=== PATIENT | female | born 1990 ===

== ENCOUNTER 2025-01-29 09:14 | Emergency (ER) | payer OTHER, SELFPAY ==
[2025-01-29 09:46] VITALS: BP 143/84; PULSE 64; RESP 16; TEMP 36.6; O2SAT 99; BMI 32.2
[2025-01-29] MEDS: ONDANSETRON 4 MG ODT PO (10:03)
--- NOTE | 2025-01-29 10:05 | DI.US.S_ITS ---
PROCEDURE: US ABDOMEN LIMITED INDICATIONS: ruq TECHNIQUE: Real-time focused scanning was performed of the abdomen, with image documentation. COMPARISON: None. FINDINGS: The liver demonstrates enlarged size. The liver demonstrates generalized moderately increased echogenicity. This decreases ultrasound sensitivity for detection of hepatic masses. Numerous small mobile gallstones are seen. The gallbladder wall is not thickened, measuring 3 mm or less. No specific pericholecystic fluid is seen. The sonographic Robledo sign is negative. There is no biliary dilatation, the common bile duct measures 5 mm. No significant pancreatic abnormality is seen on these images. IMPRESSION: Gallstones are seen, yet without additional sonographic signs of cholecystitis. Negative for biliary dilatation. Please correlate with physical examination findings, patient presentation, and laboratory values. Enlarged, fatty infiltrated liver noted. Dictated by: Norberto Moore M.D. on 01/29/2025 at 11:12 Approved by: Norberto Moore M.D. on 01/29/2025 at 11:13
[2025-01-29] MEDS: KETOROLAC 30 MG/ML VIAL 15 MG IM (10:11)
--- NOTE | 2025-01-29 10:17 | ED.ABDPAIN ---
HPI - Abdominal Pain General Chief Complaint: Abdominal Pain Stated Complaint: Abd pain Time Seen by Provider: 01/29/25 10:15 Source: patient Mode of arrival: Ambulatory History of Present Illness HPI narrative: Patient is a healthy 34-year-old female presenting to day with nausea vomiting right upper quadrant and epigastric pain. Reports that she has had these episodes handful of times over last couple of months. He is currently visiting here from [place] she was scheduled to go back home tomorrow. No fever or chills. She had some Yanez last night may have been more spicy or than usual. She was received Toradol no longer having any pain no longer nauseated overall feeling better she was no chest pain or shortness of breath Related Data Previous Rx's Medication Instructions Recorded hydrocodone 5 mg-acetaminophen 325 1 tab PO Q6H PRN pain #10 tabs 01/29/25 mg tablet levofloxacin 750 mg tablet 750 mg PO DAILY 7 days #7 tabs 01/29/25 ondansetron 4 mg disintegrating 4 mg PO Q8H PRN nausea and 01/29/25 tablet vomiting #10 tabs Allergies Allergy/AdvReac Type Severity Reaction Status Date / Time amoxicillin Allergy Diarrhea Verified 01/29/25 12:26 Patient History Social History Smoking Status: Never smoker Smoking Status: Never smoker Exam Initial Vital Signs Initial Vital Signs: Vital Signs Temperature 97.9 F 01/29/25 09:46 Pulse Rate 64 01/29/25 09:46 Respiratory Rate 16 01/29/25 09:46 Blood Pressure 143/84 H 01/29/25 09:46 Pulse Oximetry 99 01/29/25 09:46 Oxygen Delivery Method Room Air 01/29/25 09:46 GENERAL: Alert pleasant well-appearing 34-year-old and in no acute distress. HEENT: Head atraumatic,EOMI, pupils reactive, face symmetric, moist mucous membranes CARDIOVASCULAR: Regular rate and rhythm without murmurs, rubs or gallops. RESPIRATORY: Breath sounds equal bilaterally, no wheezes rales or rhonchi. ABDOMEN: Soft, no epigastric pain no right upper quadrant pain negative Robledo's sign soft nontender nondistended, evaluated after Toradol EXTREMITIES: Normal range of motion, no clubbing or edema. Neurovascularly intact NEUROLOGICAL: Alert and oriented x4.Normal gait and speech. SKIN: Warm, dry, no laceration, no petechiae, no rashes or lesions. Course Orders Ordered: ED Orders 01/29/25 10:04 Complete Blood Count AUTO DIFF Stat Comprehensive Metabolic Panel Stat Lipase Stat 01/29/25 10:05 US abdomen limited Stat Discontinued Medications Ketorolac Tromethamine (Ketorolac 30 Mg/Ml Vial) 15 mg IM NOW ONE Stop: 01/29/25 10:06 Last Admin: 01/29/25 10:11 Dose: 15 mg Documented By: CAROLINA Levofloxacin (Levofloxacin 250 Mg Tablet) 750 mg PO NOW ONE Stop: 01/29/25 12:18 Last Admin: 01/29/25 12:42 Dose: 750 mg Documented By: MARCELLE Ondansetron HCl (Ondansetron 4 Mg/2 Ml Inj) 4 mg IV NOW PRN PRN Reason: Nausea And Vomiting Ondansetron HCl (Ondansetron 4 Mg Odt) 4 mg PO NOW PRN PRN Reason: Nausea And Vomiting Last Admin: 01/29/25 10:03 Dose: 4 mg Documented By: CAROLINA Vital Signs Vital signs: Vital Signs - 8 hr 01/29/25 11:07 01/29/25 11:07 01/29/25 12:15 Pulse Rate 72 75 Blood Pressure 118/68 Pulse Oximetry 98 99 01/29/25 12:16 01/29/25 12:16 01/29/25 12:30 Pulse Rate 66 67 Blood Pressure 116/73 Pulse Oximetry 100 99 01/29/25 12:30 01/29/25 12:45 01/29/25 12:45 Pulse Rate 70 Blood Pressure 107/69 113/74 Pulse Oximetry 99 MDM - Abdominal Pain Lab Data 01/29/25 10:04 01/29/25 10:04 Labs: Lab Results 01/29/25 Range/Units 10:04 WBC 6.2 (4.5-11.0) X10^3/uL RBC 4.82 (4.0-5.2) X10^6/uL Hgb 12.8 (12.0-16.0) g/dL Hct 38.6 (36-46) % MCV 80.1 (80-100) fL MCH 26.6 (26-34) PG MCHC 33.2 (30-36) % RDW 12.5 (11.6-14.8) % Plt Count 310 (150-400) X10^3/uL Neut % (Auto) 70.1 (50-75) % Lymph % (Auto) 24.5 L (25-40) % [place] % (Auto) 4.2 (3-14) % Eos % (Auto) 0.8 L (2-4) % Baso % (Auto) 0.4 (0-2) % Neut # (Auto) 4400 (6986-8178) /uL Lymph # (Auto) 1500 (4493-4672) /uL [place]ay # (Auto) 300 (0-900) /uL Eos # (Auto) 100 (0-450) /uL Baso # (Auto) 0 (0-100) /uL Sodium 139 (137-145) mmol/L Potassium 4.1 (3.4-5.1) mmol/L Chloride 107 (98-107) mmol/L Carbon Dioxide 24 (22-32) mmol/L BUN 13 (7-17) mg/dL Creatinine 0.57 (0.52-1.04) mg/dL Estimated GFR > 60 (>60) mL/min BUN/Creatinine Ratio 22.8 H (6-22) Glucose 124 H (70-100) mg/dL Calcium 9.5 (8.4-10.2) mg/dL Total Bilirubin 1.7 H (0.2-1.3) mg/dL AST 717 H (14-36) IU/L ALT 518 H (<35) IU/L Alkaline Phosphatase 109 (38-126) U/L Total Protein 7.8 (6.3-8.2) g/dL Albumin 4.4 (3.5-5.0) g/dL Globulin 3.4 (1.7-4.1) g/dL Albumin/Globulin Ratio 1.3 (1.0-2.8) Lipase 254 (23-300) U/L Point of care testing: Point of Care Testing Test Results Negative Urine Dip Bedside Urine Glucose Negative Bedside Urine Bilirubin - Negative Bedside Urine Ketone - Negative Urine Specific [place] 1.015 Bedside Urine Occult Blood - Negative Bedside Urine pH 6.0 Bedside Urine Protein - Negative Bedside Urine Urobilinogen - Negative Bedside Urine Nitrite - Negative Bedside Urine Leukocytes - Negative Esterase Imaging Data US - abdomen: Radiologist's Impression: PROCEDURE: US ABDOMEN LIMITED INDICATIONS: ruq TECHNIQUE: Real-time focused scanning was performed of the abdomen, with image documentation. COMPARISON: None. FINDINGS: The liver demonstrates enlarged size. The liver demonstrates generalized moderately increased echogenicity. This decreases ultrasound sensitivity for detection of hepatic masses. Numerous small mobile gallstones are seen. The gallbladder wall is not thickened, measuring 3 mm or less. No specific pericholecystic fluid is seen. The sonographic Robledo sign is negative. There is no biliary dilatation, the common bile duct measures 5 mm. No significant pancreatic abnormality is seen on these images. IMPRESSION: Gallstones are seen, yet without additional sonographic signs of cholecystitis. Negative for biliary dilatation. Please correlate with physical examination findings, patient presentation, and laboratory values. Enlarged, fatty infiltrated liver noted. Dictated by: Norberto Moore M.D. on 01/29/2025 at 11:12 MDM Narrative Medical decision making narrative: Patient is a 34-year-old healthy female presenting today with epigastric pain nausea. She has had attacks a handful of times over last few months. She was found to have cholelithiasis without evidence of cholecystitis. Ultrasound shows numerous small mobile stones. No pericholecystic fluid. No biliary dilation and common bile duct is 5 mm She has no leukocytosis. Bilirubin is 1.7 AST 7.17 ALT 518 alk-phos [address] lipase [address] Discussion with Dr. Ding on-call General surgery recommends that patient go back to [place] and have gallbladder removed there This is also patient's preference She was afebrile without leukocytosis or evidence of cholecystitis. However nonetheless we will start her on antibiotics prophylactically. Give her pain medication nausea medication to help her through her travel. Recommended she call her primary care provider and see general surgeon she may need to return to ED. Strict return precautions given Discharge Plan Departure Patient Disposition: Home Clinical Impression: Cholelithiasis Instructions: Gallstones Activity Restrictions/Additional Instructions: *You have been diagnosed with gallstone *What to do: At this time you will need to have your gallbladder removed. You have multiple gallstones in your gallbladder. Starting you on an antibiotic to help prevent infection. Follow gallbladder diet low-fat foods Call your primary care provider to get scheduled with the general surgeon. *Continue to take medications as directed--> [facility] Levaquin 750 mg once daily 7 days Zofran 4 mg every 8 hours if needed for nausea or vomiting Motrin 600 mg every 6 hours if needed for [id number] pain [place] 1 tablet every 6 hours if needed for *Follow up with your primary care provider in 2-3 days or call [phone] You will need general surgery removal of gallbladder *Return to ER if you should have increasing pain fever persistent vomiting [or] any new, worsening or concerning symptoms CONTROLLED SUBSTANCE DISCHARGE (Narcotoic/benzodiazepine/Flexeril/Phenergan) 1. You have been prescribed narcotic medications, it does have acetaminophen/Tylenol/paracetamol in it, DO NOT TAKE MORE THAN 4,00mg in 24 hours of Tylenol. TRAMADOL DOES NOT CONTAIN TYLENOL 2. Please understand that we cannot provide further refills of narcotics, benzodiazepines or controlled substances through the ED and her pain management will need to be through your provider. 3. While on these medications you cannot drive or operate heavy machinery. 4. You cannot sign legal documents or perform any duties such as this. 5. As long as you're taking opiate pain medications he should also be taking a stool softener such as Colace, Dulcolax, MiraLAX or prune juice, to help avoid constipation. Prescriptions: New levofloxacin 750 mg tablet 750 mg PO DAILY 7 Days Qty: 7 0RF ondansetron 4 mg tablet,disintegrating 4 mg PO Q8H PRN (Reason: nausea and vomiting) Qty: 10 0RF hydrocodone-acetaminophen 5-325 mg tablet 1 tab PO Q6H PRN (Reason: pain) Qty: 10 0RF Stand Alone Forms: Patient Portal/API/Survey
[2025-01-29 10:18] LABS: Add Manual Diff / Slide Review NO; Basophils Absolute Auto 0 /uL (0-100); Basophils Percent Auto 0.4 % (0-2); Eosinophils Absolute Auto 100 /uL (0-450); Eosinophils Percent Auto 0.8 % (2-4); Hematocrit 38.6 % (36-46); Hemoglobin 12.8 g/dL (12.0-16.0); Lymphocytes Absolute Auto 1500 /uL (1100-4500); Lymphocytes Percent Auto 24.5 % (25-40); Mean Corpuscular HGB Conc 33.2 % (30-36); Mean Corpuscular Hemoglobin 26.6 PG (26-34); Mean Corpuscular Volume 80.1 fL (80-100); Monocytes Absolute Auto 300 /uL (0-900); Monocytes Percent Auto 4.2 % (3-14); Neutrophils Absolute Auto 4400 /uL (1500-7000); Neutrophils Percent Auto 70.1 % (50-75); Platelet Count 310 X10^3/uL (150-400); Red Blood Cell Count 4.82 X10^6/uL (4.0-5.2); Red Cell Distribution Width 12.5 % (11.6-14.8); White Blood Cell Count 6.2 X10^3/uL (4.5-11.0)
[2025-01-29 10:26] LABS: Alanine Aminotransferase 518 IU/L (<35); Albumin 4.4 g/dL (3.5-5.0); Albumin Globulin Ratio 1.3 (1.0-2.8); Alkaline Phosphatase 109 U/L (38-126); Aspartate Aminotransferase 717 IU/L (14-36); BUN Creatinine Ratio 22.8 (6-22); Bilirubin Total 1.7 mg/dL (0.2-1.3); Blood Urea Nitrogen 13 mg/dL (7-17); Calcium 9.5 mg/dL (8.4-10.2); Carbon Dioxide 24 mmol/L (22-32); Chloride 107 mmol/L (98-107); Estimated Glomerular Filt Rate > 60 mL/min (>60); Globulin 3.4 g/dL (1.7-4.1); Glucose 124 mg/dL (70-100); HEMOLYSIS < 15 (0-50); Lipase 254 U/L (23-300); Potassium 4.1 mmol/L (3.4-5.1); Sodium 139 mmol/L (137-145); Total Protein 7.8 g/dL (6.3-8.2)
[2025-01-29 11:07] VITALS: BP 118/68; PULSE 72; O2SAT 98
[2025-01-29 12:15] VITALS: PULSE 75; O2SAT 99
[2025-01-29 12:16] VITALS: BP 116/73; PULSE 66; O2SAT 100
[2025-01-29 12:30] VITALS: BP 107/69; PULSE 67; O2SAT 99
[2025-01-29] MEDS: levoFLOXacin 250 MG TABLET 750 MG PO (12:42)
[2025-01-29 12:45] VITALS: BP 113/74; PULSE 70; O2SAT 99
== END 2025-01-29 13:09 | disposition home or self-care (01) ==
PROVIDERS: Emergency Provider Emergency Medicine
DX: K80.20 Calculus of gallbladder without cholecystitis without obstruction (principal)
CPT/HCPCS: 76705; 80053; 81003; 81025; 83690; 85025; 96372; 99283; 99284; J1885